=== PATIENT | male | born 1995 | race Two or more races ===

== ENCOUNTER 2019-01-03 00:21 | Emergency (ER) | payer BC ==
[~2019-01-03] VITALS: Ht 177.8 cm; Wt 74.8 kg
[2019-01-03] MEDS ORDERED: ASACOL HD800 MG (01:14)
[2019-01-03] MEDS ORDERED: STRIBILD TABLE1 EACH PO (01:55)
== END 2019-01-03 02:08 | disposition home or self-care (01) ==
LOC: ER 00:21
DX: Z20.2 Contact with and (suspected) exposure to infections with a predominantly sexual mode of transmission (principal); Z72.51 High risk heterosexual behavior